=== PATIENT | female | born 1975 | race Caucasian/White ===

== ENCOUNTER 2016-07-06 06:32 | Inpatient (IN) | payer SELFPAY ==
[~2016-07-06] VITALS: Ht 121.9 cm; Wt 77.1 kg
[2016-07-06] MEDS ORDERED: LACTATED RINGERS 1,000 ML IV SCH ×2 (06:46→11:00)
[2016-07-06] MEDS ORDERED: FOLI-43 PO (06:59)
[2016-07-06] MEDS ORDERED: IRON1CAP21 PO (06:59)
[2016-07-06] MEDS ORDERED: PREN-55 PO (06:59)
[2016-07-06] MEDS ORDERED: OCD PO (06:59)
[2016-07-06] MEDS ORDERED: CARBOPROST TROMETHAMINE 250 MCG/ML AMPUL IM PRN (07:00)
[2016-07-06] MEDS ORDERED: METHYLERGONOVINE MALEATE 0.2 MG/ML IM PRN (07:00)
[2016-07-06 07:14] LABS: BASOPHILS % 0.2 % (0.0-2.0); CLARITY URINE CLEAR (CLEAR); COLOR URINE YELLOW (YELLOW); DIFFERENTIAL COMMENT 0; EOSINOPHILS % 0.6 % (0.0-5.0); GLUCOSE URINE NEGATIVE (NEGATIVE); HEMATOCRIT. 35.3 % (36.0-48.0); HEMOGLOBIN. 11.7 g/dL (12.0-16.0); KETONES URINE NEGATIVE (NEGATIVE); LEUKOCYTE ESTERASE URINE TRACE (NEGATIVE); LYMPHOCYTES % 30.8 % (20.0-50.0); MEAN CORPUSCULAR HEMOGLOBIN 26.3 pg (28.0-32.0); MEAN CORPUSCULAR HGB CONC 33.3 g/dL (31.0-37.0); MEAN CORPUSCULAR VOLUME 79.1 fL (81.0-99.0); MONOCYTES % 6.1 % (2.0-8.0); NEUTROPHILS % 62.3 % (40.0-76.0); NITRITE URINE NEGATIVE (NEGATIVE); OCCULT BLOOD URINE NEGATIVE (NEGATIVE); PLATELET 164 x1000/uL (130-400); PROTEIN URINE NEGATIVE (NEGATIVE); RED BLOOD CELL COUNT 4.46 mill/uL (4.2-5.4); RED CELL DISTRIBUTION WIDTH 16.1 % (11.6-14.6); SPECIFIC GRAVITY URINE 1.013 (1.005-1.030); UROBILINOGEN URINE 0.2 E.U./dL (0.2-1.0)
[2016-07-06 07:35] LABS: *AMPHETAMINES SCREEN URINE NEGATIVE (NEGATIVE); *BARBITURATES SCREEN URINE NEGATIVE (NEGATIVE); *BENZODIAZEPINES SCREEN URINE NEGATIVE (NEGATIVE); *COCAINE SCREEN URINE NEGATIVE (NEGATIVE); CANNABINOID URINE SCREEN NEGATIVE (NEGATIVE); ECSTASY MDMA SCREEN URINE NEGATIVE (NEGATIVE); METHADONE URINE SCREEN NEGATIVE (NEGATIVE); OPIATES URINE SCREEN NEGATIVE (NEGATIVE); PHENCYCLIDINE URINE SCREEN NEGATIVE (NEGATIVE)
[2016-07-06 08:01] LABS: HEPATITIS B SURFACE ANTIGEN NEGATIVE; RUBELLA IGG 294.4 IU/mL (4.99-10)
[2016-07-06] MEDS ORDERED: CEFAZOLIN SODIUM 1000MG/VIAL ONE (08:09)
[2016-07-06] MEDS ORDERED: ONDANSETRON HCL 4MG/2ML VIAL ONE (08:09)
[2016-07-06] MEDS ORDERED: OXYTOCIN 10 UNITS/ML 1ML ONE (08:09)
[2016-07-06] MEDS ORDERED: SODIUM CHLORIDE 0.9% 10ML VIAL ONE (08:09)
[2016-07-06] MEDS ORDERED: FENTANYL CITRATE/PF 50MCG/ML 2ML VIAL ONE (08:12)
[2016-07-06] MEDS ORDERED: MORPHINE SULFATE/PF 1MG/ML 10ML AMP ONE (08:12)
[2016-07-06] MEDS ORDERED: EPHEDRINE SULFATE 50MG/ML VIAL ONE (08:48)
[2016-07-06] MEDS ORDERED: DEXT 5%/LR + PITOCIN 20UNITS/L 1,000 ML IV SCH (09:27)
[2016-07-06] MEDS ORDERED: BISACODYL 10MG SUPP PR PRN (09:30)
[2016-07-06] MEDS ORDERED: RHO(D) IMMUNE GLOBULIN 300 MCG/SYR IM PRN (09:30)
[2016-07-06] MEDS ORDERED: HYDROMORPHONE HCL/PF 2MG/ML CPJ IM PRN (09:30)
[2016-07-06] MEDS ORDERED: DIPHENHYDRAMINE 50MG/ML VIAL IV PRN (10:15)
[2016-07-06] MEDS ORDERED: NALOXONE HCL 0.4 MG/ML 1ML VIAL IV PRN (10:15)
[2016-07-06] MEDS ORDERED: ONDANSETRON HCL 4MG/2ML VIAL IV PRN (10:15)
[2016-07-06] MEDS ORDERED: BUTORPHANOL TARTRATE 2 MG/ML VIAL IV PRN (10:15)
[2016-07-06] MEDS ORDERED: KETOROLAC 30MG/ML VIAL IV PRN (10:15)
[2016-07-06] MEDS ORDERED: METHYLERGONOVINE MALEATE 0.2 MG/ML ONE (11:38)
[2016-07-06] MEDS: DEXT 5%/LR + PITOCIN 20UNITS/L 1,000 ML IV SCH (11:52)
[2016-07-06 13:15] VITALS: BP 116/77
[2016-07-06 13:48] LABS: BACTERIA URINE 1+; SQUAMOUS EPITHELIAL CELL URINE 2+ /lpf (RARE/1+)
[2016-07-06 13:53] LABS: RBC URINE 0-2 /hpf (0-2); YEAST URINE RARE
[2016-07-06 14:18] VITALS: BP 118/76
[2016-07-06 16:23] VITALS: BP 103/61
[2016-07-06 19:10] VITALS: BP 114/74
[2016-07-07] VITALS (7 sets, daily range): BP systolic 90–120; BP diastolic 47–76
[2016-07-07] MEDS: DEXT 5%/LR + PITOCIN 20UNITS/L 1,000 ML IV SCH (00:04)
[2016-07-07 07:08] LABS: BASOPHILS % 0.3 % (0.0-2.0); EOSINOPHILS % 0.6 % (0.0-5.0); HEMATOCRIT. 30.4 % (36.0-48.0); HEMOGLOBIN. 10.1 g/dL (12.0-16.0); LYMPHOCYTES % 17.8 % (20.0-50.0); MEAN CORPUSCULAR HEMOGLOBIN 26.8 pg (28.0-32.0); MEAN CORPUSCULAR HGB CONC 33.3 g/dL (31.0-37.0); MEAN CORPUSCULAR VOLUME 80.4 fL (81.0-99.0); MEAN PLATELET VOLUME 11.4 fl (7.4-10.4); MONOCYTES % 6.2 % (2.0-8.0); NEUTROPHILS % 75.1 % (40.0-76.0); PLATELET 126 x1000/uL (130-400); RED BLOOD CELL COUNT 3.78 mill/uL (4.2-5.4); RED CELL DISTRIBUTION WIDTH 16.2 % (11.6-14.6); WHITE BLOOD COUNT 9.7 x1000/uL (4.5-11.0)
[2016-07-07] MEDS: ACETAMINOPHEN WITH CODEINE 300/30MG TABLET PO PRN ×2 (15:11→21:08)
[2016-07-07] MEDS: IBUPROFEN 400MG TABLET PO PRN (21:07)
[2016-07-08 04:30] VITALS: BP 90/61
[2016-07-08] MEDS: IBUPROFEN 400MG TABLET PO PRN ×2 (04:30→15:02)
[2016-07-08 08:41] VITALS: BP 104/68
[2016-07-08] MEDS: ACETAMINOPHEN WITH CODEINE 300/30MG TABLET PO PRN ×2 (11:15→15:03)
[2016-07-08 20:10] VITALS: BP 113/71
[2016-07-08] MEDS: IBUPROFEN 800MG TABLET PO PRN (23:52)
[2016-07-09] VITALS: BP 107/61
[2016-07-09 04:00] VITALS: BP 128/76
[2016-07-09 07:15] VITALS: BP 120/75
[2016-07-09 08:43] VITALS: BP 120/75
[2016-07-09] MEDS: IBUPROFEN 800MG TABLET PO PRN (08:43)
== END 2016-07-09 11:15 | disposition home or self-care (01) | DRG 540 ==
LOC: L&D 06:32 → OBSVTOIN 06:32 → 7EST PP/OB 15:38
PROVIDERS: ADMIT Obstetrics & Gynecology; ATTEND Obstetrics & Gynecology
PROC: 0UB70ZZ Excision of Bilateral Fallopian Tubes, Open Approach (ICD-10-PCS; 2016-07-06)
PROC: 10D00Z1 Extraction of Products of Conception, Low, Open Approach (ICD-10-PCS; principal; 2016-07-06 11:00)
DX: O34.219 Maternal care for unspecified type scar from previous cesarean delivery (principal); D64.9 Anemia, unspecified; O99.02 Anemia complicating childbirth; O76 Abnormality in fetal heart rate and rhythm complicating labor and delivery; Z82.49 Family history of ischemic heart disease and other diseases of the circulatory system; Z37.0 Single live birth; Z83.3 Family history of diabetes mellitus; Z3A.39 39 weeks gestation of pregnancy; Z30.2 Encounter for sterilization
CPT/HCPCS: 36415; 80305; 81001; 85025; 85610; 85730; 86592; 86703; 86762; 86850; 86900; 87340; 88302; 88307; A4216; J0171; J0690; J2210; J2274; J2405; J2590; J3010; J7120; A4315